=== PATIENT | female | born 1970 | race Two or more races ===

== ENCOUNTER 2023-10-06 21:40 | Emergency (ER) | payer OTHER ==
[~2023-10-06] VITALS: Ht 162.6 cm; Wt 65.8 kg
[2023-10-06 21:43] VITALS: BP 186/141; PULSE 75; RESP 14; TEMP 96.2; O2SAT 99
[2023-10-06 21:50] VITALS: TEMP 96.2
[2023-10-06] MEDS: lisinopriL 20 MG TAB PO ONE (22:14)
[2023-10-06] MEDS: carvediloL 6.25 MG TAB PO ONE (22:14)
[2023-10-06 22:35] LABS: BASOPHILS # (AUTO) 0.1 K/uL (0.00-0.22); BASOPHILS % (AUTO) 0.7 % (0.0-2.0); EOSINOPHILS # (AUTO) 0.3 K/uL (0-0.4); EOSINOPHILS % (AUTO) 2.9 % (0.0-4.0); HEMATOCRIT 53.9 % (36-48); HEMOGLOBIN 18.5 g/dL (12.0-16.0); LYMPHOCYTES # (AUTO) 2.7 K/uL (2.5-16.5); MEAN CORPUSCULAR HEMOGLOBIN 32 pg (27-31); MEAN CORPUSCULAR HGB CONC 34 g/dL (33-37); MONOCYTES # (AUTO) 0.4 K/uL (0.8-1.0); MONOCYTES % (AUTO) 4.1 % (1.7-9.3); NEUTROPHILS # (AUTO) 5.7 K/uL (1.8-7.7); NEUTROPHILS % (AUTO) 62.3 % (42.2-75.2); PLATELET COUNT (AUTO) 201 K/uL (140-450); RED BLOOD CELL COUNT(AUTO) 5.85 MIL/uL (4.20-5.40); RED CELL DISTRIBUTION WIDTH 15.8 % (11.6-13.7); WHITE BLOOD COUNT (AUTO) 9.1 K/uL (4.8-10.8)
[2023-10-06 22:41] LABS: ANION GAP 14.8 (8-16); CALCIUM 9.6 mg/dL (8.5-10.1); CARBON DIOXIDE 22.3 mmol/L (21-32); CREATININE 1.2 mg/dL (0.6-1.3); POTASSIUM 4.1 mmol/L (3.5-5.1)
[2023-10-06 23:14] VITALS: BP 172/122; PULSE 71; RESP 16; O2SAT 99
[2023-10-06] MEDS: amLODIPine 5 MG TAB PO ONE (23:28)
== END 2023-10-06 23:30 | disposition home or self-care (01) ==
LOC: MED 21:40
DX: I10 Essential (primary) hypertension (principal)
CPT/HCPCS: 36415; 80048; 85025; 99283